=== PATIENT | male | born 1990 | race Caucasian/White ===

== ENCOUNTER 2018-06-24 19:57 | Emergency (ER) | payer MEDICAID ==
[~2018-06-24] VITALS: Ht 162.6 cm; Wt 87.1 kg
[2018-06-24 20:08] VITALS: Ht 162.6 cm; Wt 87.1 kg
[2018-06-24 22:10] LABS: BASOPHIL % 0.4 % (0-2); PLATELET COUNT 250 x10^3mcL (130-400); RED CELL DISTRIBUTION WIDTH 14.1 % (11.5-14.5)
[2018-06-24 22:24] LABS: CALCIUM 9.4 mg/dL (8.5-10.1); CARBON DIOXIDE 32.5 mmol/L (21-32); CHLORIDE SERUM 100 mmol/L (98-107); GFR1 > 60 mL/min; GLUCOSE SERUM 102 mg/dL (74-106); POTASSIUM SERUM 4.1 mmol/L (3.5-5.1); SODIUM SERUM 137 mmol/L (136-145)
[2018-06-24 22:28] LABS: ALBUMIN 4.5 g/dL (3.4-5.0); ALKALINE PHOSPHATASE 99 U/L (46-116); ALT/SGPT 85 U/L (16-63); AST/SGOT 17 U/L (15-37); BILIRUBIN TOTAL 0.58 mg/dL (0.20-1.00); CHOLESTEROL 155 mg/dL (<200); TOTAL PROTEIN, SERUM 8.4 g/dL (6.4-8.2)
[2018-06-24 23:10] LABS: AMPHETAMINE QUAL UR NONE DETECTED (See below)
[2018-06-25 00:20] VITALS: BP 121/77
== END 2018-06-25 00:20 | disposition home or self-care (01) ==
LOC: ED 19:57
PROVIDERS: Specialist
DX: R51 Headache (principal)
CPT/HCPCS: 36415; 83880; G0480; J1885; Q0092